=== PATIENT | female | born 1960 | race Caucasian/White ===

== ENCOUNTER 2016-11-16 12:49 | Emergency (ER) | payer BC ==
[~2016-11-16] VITALS: Ht 160 cm; Wt 81.6 kg
[~2016-11-16 12:49] MED LIST: ALBUTEROL0.09 MG/A2 IH; AMARYL1 MG PO; ATIVAN0.5 MG PO; BLADDER PILL; CLARITIN10 MG PO; DARVOCET N 1001 TAB PO; DAYPRO600 M1 PO; DICLOFENAC SOD75 MG PO; DITROPAN XL15 MG PO; FLEXERIL10 MG PO; GLUCOPHAGE500 MG PO; LEVAQUIN750 M1 PO; LIDEX 0.05% CRE15 GM T; MEDROL DOSEPAK4 MG PO; NEURONTIN300 MG PO; PERMETHRIN60 GM TP; POTASSIUM CHLO20 ME3 PO; PREDNICOT20 MG PO; PROAIR HFA8.5 GM IH; SEPTRA DS 800 M1 TAB PO; SINGULAIR5 MG PO; TESSALON PERLE100 M1 PO; TORADOL10 MG PO; VICODIN 5-3001 EACH PO; ZITHROMAX Z PA250 MG PO; ZYRTEC10 M1 PO; [UNRECOGNIZED DRUG - OTHER] PO
[2016-11-16 12:58] VITALS: BP 143/86
[2016-11-16] MEDS ORDERED: LEVAQUIN750 M1 PO (13:51)
[2016-11-16] MEDS ORDERED: ROBITUSSIN AC 110 ML PO (13:51)
[2016-11-16] MEDS ORDERED: CLARITIN10 MG PO (13:51)
[2016-11-16] MEDS ORDERED: PREDNISONE10 MG PO (13:51)
== END 2016-11-16 13:57 | disposition home or self-care (01) ==
LOC: ED 12:49
DX: J18.1 Lobar pneumonia, unspecified organism (principal); R03.0 Elevated blood-pressure reading, without diagnosis of hypertension; Z88.8 Allergy status to other drugs, medicaments and biological substances

== ENCOUNTER 2016-12-19 09:55 | Emergency (ER) | payer BC ==
[~2016-12-19 09:55] MED LIST changes: +PREDNISONE10 MG PO; +ROBITUSSIN AC 110 ML PO
[2016-12-19 09:58] VITALS: BP 102/76
[2016-12-19] MEDS ORDERED: ASPIRIN CHILDRE81 MG PO (10:03)
== END 2016-12-19 10:34 | disposition home or self-care (01) ==
LOC: ED 09:55
DX: R20.8 Other disturbances of skin sensation (principal); Z98.890 Other specified postprocedural states; Z98.51 Tubal ligation status; Z79.82 Long term (current) use of aspirin; Z79.899 Other long term (current) drug therapy; Z88.8 Allergy status to other drugs, medicaments and biological substances; Z86.718 Personal history of other venous thrombosis and embolism

== ENCOUNTER 2017-04-25 11:36 | Emergency (ER) | payer BC ==
[~2017-04-25] VITALS: Ht 160 cm; Wt 79.4 kg
[~2017-04-25 11:36] MED LIST changes: +ASPIRIN CHILDRE81 MG PO
[2017-04-25 11:38] VITALS: BP 97/76
[2017-04-25 12:05] LABS: BASO % 0.3 % (0.0-1.0); EOS # 0.1 10*3/uL (0.0-0.4); EOS % 1.9 % (1.0-4.0); HEMATOCRIT 38.9 % (37.0-47.0); HEMOGLOBIN 12.9 g/dl (12.0-16.0); LYMPH # 2.3 10*3/uL (1.3-4.4); LYMPH % 31.4 % (27.0-41.0); MEAN CELL VOLUME 95.1 fl (81.0-99.0); MEAN CORPUSCULAR HGB 31.5 pg (27.0-31.0); MEAN CORPUSCULAR HGB CONC 33.2 g/dl (33.0-37.0); MEAN PLATELET VOLUME 9.4 fl (9.6-12.3); MONO # 0.7 10*3/uL (0.1-1.0); MONO % 9.1 % (3.0-9.0); NEUT # 4.1 10*3/uL (2.3-7.9); NEUT % 56.7 % (47.0-73.0); PLATELET COUNT AUTOMATED 197 10*3/uL (130-400); RED BLOOD COUNT 4.09 10*6/uL (4.10-5.10); RED CELL DISTRI WIDTH 12.6 % (0-14.5); WHITE BLOOD COUNT 7.2 10*3/uL (4.8-10.8)
[2017-04-25 12:20] LABS: ALBUMIN 3.5 gm/dl (3.1-4.5); ALKALINE PHOSPHATASE 144 U/L (45-117); BUN 15 mg/dl (7-24); CHLORIDE 109 mmol/L (98-107); CREATININE 0.68 mg/dL (0.55-1.02); POTASSIUM 3.9 mmol/L (3.5-5.1); SGOT/AST 23 IU/L (3-35); SGPT/ALT 50 U/L (12-78); SODIUM 143 mmol/L (136-145); TOTAL PROTEIN 7.6 gm/dL (6.4-8.2)
[2017-04-25] MEDS ORDERED: CLARITIN10 MG PO (12:39)
[2017-04-25] MEDS ORDERED: ROBITUSSIN DM 105 ML PO (12:39)
[2017-04-25] MEDS ORDERED: FLONASE ALLERG9.9 ML NAS (12:39)
== END 2017-04-25 13:31 | disposition home or self-care (01) ==
LOC: ED 11:36
PROVIDERS: Nurse Practitioner Family
DX: B34.9 Viral infection, unspecified (principal); Z88.8 Allergy status to other drugs, medicaments and biological substances; Z79.82 Long term (current) use of aspirin; Z79.899 Other long term (current) drug therapy

== ENCOUNTER 2017-06-15 13:12 | Emergency (ER) | payer BC ==
[~2017-06-15] VITALS: Ht 160 cm; Wt 64.9 kg
[~2017-06-15 13:12] MED LIST changes: +FLONASE ALLERG9.9 ML NAS; +ROBITUSSIN DM 105 ML PO
[2017-06-15 13:24] VITALS: BP 110/60
== END 2017-06-15 14:20 | disposition home or self-care (01) ==
LOC: ED 13:12
DX: S20.121A Blister (nonthermal) of breast, right breast, initial encounter (principal); Z88.8 Allergy status to other drugs, medicaments and biological substances; Z79.82 Long term (current) use of aspirin; Z79.899 Other long term (current) drug therapy; X58.XXXA Exposure to other specified factors, initial encounter; Y93.89 Activity, other specified; Y92.89 Other specified places as the place of occurrence of the external cause; Y99.8 Other external cause status

== ENCOUNTER → 2017-06-19 | Outpatient (CLI) | payer BC ==
[2017-06-19 09:43] LABS: BASO % 0.3 % (0.0-1.0); EOS # 0.2 10*3/uL (0.0-0.4); EOS % 2.9 % (1.0-4.0); HEMATOCRIT 39.2 % (37.0-47.0); HEMOGLOBIN 12.9 g/dl (12.0-16.0); LYMPH % 26.5 % (27.0-41.0); MEAN CELL VOLUME 95.1 fl (81.0-99.0); MEAN CORPUSCULAR HGB 31.3 pg (27.0-31.0); MEAN CORPUSCULAR HGB CONC 32.9 g/dl (33.0-37.0); MEAN PLATELET VOLUME 9.6 fl (9.6-12.3); MONO # 0.6 10*3/uL (0.1-1.0); MONO % 7.6 % (3.0-9.0); NEUT # 4.8 10*3/uL (2.3-7.9); NEUT % 62.3 % (47.0-73.0); PLATELET COUNT AUTOMATED 218 10*3/uL (130-400); RED BLOOD COUNT 4.12 10*6/uL (4.10-5.10); RED CELL DISTRI WIDTH 12.1 % (0-14.5); WHITE BLOOD COUNT 7.7 10*3/uL (4.8-10.8)
[2017-06-19 09:51] LABS: ALBUMIN 3.5 gm/dl (3.1-4.5); ALKALINE PHOSPHATASE 132 U/L (45-117); BILIRUBIN, DIRECT < 0.1 mg/dL (0.0-0.2); BUN 19 mg/dl (7-24); CHLORIDE 107 mmol/L (98-107); CHOLESTEROL 264 mg/dL (<200); CREATININE 0.69 mg/dL (0.55-1.02); HDL CHOLESTEROL 95 mg/dl (40-60); LDL CHOLESTEROL 153 mg/dL (9-159); POTASSIUM 4.3 mmol/L (3.5-5.1); SGOT/AST 23 IU/L (3-35); SGPT/ALT 46 U/L (12-78); SODIUM 141 mmol/L (136-145); THYROXINE (T4) TOTAL 8.1 ug/dl (4.8-13.9); TOTAL PROTEIN 7.5 gm/dL (6.4-8.2); TRIGLYCERIDES 80 mg/dl (<150); VLDL CHOLESTEROL 16 mg/dL (6-40)
== END | disposition home or self-care (01) ==
LOC: LAB 08:53
PROVIDERS: Family Medicine
DX: E11.9 Type 2 diabetes mellitus without complications (principal); K21.9 Gastro-esophageal reflux disease without esophagitis; G40.909 Epilepsy, unspecified, not intractable, without status epilepticus

== ENCOUNTER 2017-07-15 14:36 | Emergency (ER) | payer BC ==
[~2017-07-15] VITALS: Wt 79.4 kg
[2017-07-15 14:53] VITALS: BP 111/58
[2017-07-15] MEDS ORDERED: AMOXICILLIN500 M2 PO (16:47)
[2017-07-15] MEDS ORDERED: CYCLOBENZAPRINE10 MG PO (16:47)
[2017-07-15] MEDS ORDERED: MEDROL DOSEPAK4 MG PO (16:47)
[2017-07-15] MEDS ORDERED: NAPROSYN500 MG PO (16:47)
== END 2017-07-15 17:11 | disposition home or self-care (01) ==
LOC: ED 14:36
DX: J01.90 Acute sinusitis, unspecified (principal); M54.31 Sciatica, right side; Z91.040 Latex allergy status; Z88.8 Allergy status to other drugs, medicaments and biological substances; Z79.82 Long term (current) use of aspirin; Z79.899 Other long term (current) drug therapy

== ENCOUNTER 2017-09-09 16:40 | Emergency (ER) | payer BC ==
[~2017-09-09] VITALS: Wt 77.1 kg
[~2017-09-09 16:40] MED LIST changes: +AMOXICILLIN500 M2 PO; +CYCLOBENZAPRINE10 MG PO; +NAPROSYN500 MG PO
[2017-09-09 17:17] LABS: BASO % 0.4 % (0.0-1.0); EOS # 0.1 10*3/uL (0.0-0.4); EOS % 0.9 % (1.0-4.0); HEMATOCRIT 38.8 % (37.0-47.0); HEMOGLOBIN 12.9 g/dl (12.0-16.0); LYMPH # 2.3 10*3/uL (1.3-4.4); LYMPH % 22.3 % (27.0-41.0); MEAN CELL VOLUME 96.3 fl (81.0-99.0); MEAN CORPUSCULAR HGB CONC 33.2 g/dl (33.0-37.0); MEAN PLATELET VOLUME 9.8 fl (9.6-12.3); MONO # 0.9 10*3/uL (0.1-1.0); MONO % 8.3 % (3.0-9.0); NEUT # 6.9 10*3/uL (2.3-7.9); NEUT % 67.8 % (47.0-73.0); PLATELET COUNT AUTOMATED 198 10*3/uL (130-400); RED BLOOD COUNT 4.03 10*6/uL (4.10-5.10); RED CELL DISTRI WIDTH 12.6 % (0-14.5); WHITE BLOOD COUNT 10.2 10*3/uL (4.8-10.8)
[2017-09-09 17:34] VITALS: BP 146/72
[2017-09-09 17:34] LABS: ACETAMINOPHEN (TYLENOL) < 2.0 ug/ml (10-30); ALBUMIN 3.9 gm/dl (3.1-4.5); ALKALINE PHOSPHATASE 119 U/L (45-117); BUN 9 mg/dl (7-24); CHLORIDE 105 mmol/L (98-107); CREATININE 0.73 mg/dL (0.55-1.02); ETHYL ALCOHOL < 3.0 mg/dl (<3); LIPASE 143 U/L (73-393); POTASSIUM 3.2 mmol/L (3.5-5.1); SGOT/AST 19 IU/L (3-35); SGPT/ALT 30 U/L (12-78); SODIUM 141 mmol/L (136-145); TOTAL PROTEIN 7.6 gm/dL (6.4-8.2); TROPONIN I < 0.015 ng/ml (<0.045)
[2017-09-09 17:39] LABS: BILIRUBIN NEGATIVE (NEGATIVE); BLOOD TRACE-INTACT (NEGATIVE); CLARITY CLEAR (CLEAR); COLOR YELLOW (YELLOW); GLUCOSE NEGATIVE (NEGATIVE); KETONE NEGATIVE (NEGATIVE); LEUKO ESTERASE NEGATIVE (NEGATIVE); NITRITE NEGATIVE (NEGATIVE); UROBILINOGEN 0.2 E.U./dl (0.2-1.0)
[2017-09-09 17:52] LABS: URINE AMPHETAMINES < 1000 (1000ng/ml); URINE BARBITURATES < 200 (200ng/ml); URINE BENZODIAZEPINES < 200 (200ng/ml); URINE CANNABINOIDS (THC) < 50 (50ng/ml); URINE COCAINE < 300 (300ng/ml); URINE METHADONE < 300 (300ng/ml); URINE OPIATES < 300 (300ng/ml)
[2017-09-09 17:53] LABS: BACTERIA TRACE
[2017-09-09 17:55] LABS: URINE PHENCYCLIDINE < 25 (25ng/ml)
== END 2017-09-09 18:49 | disposition home or self-care (01) ==
LOC: ED 16:40
PROVIDERS: Emergency Medicine
DX: F41.9 Anxiety disorder, unspecified (principal); Z91.040 Latex allergy status; Z88.8 Allergy status to other drugs, medicaments and biological substances; Z79.82 Long term (current) use of aspirin; Z79.899 Other long term (current) drug therapy

== ENCOUNTER 2017-12-24 12:45 | Emergency (ER) | payer OTHER, MEDICAID ==
[~2017-12-24] VITALS: Ht 160 cm; Wt 77.1 kg
[2017-12-24 15:00] VITALS: BP 124/78
[2017-12-24] MEDS ORDERED: NAPROSYN500 MG PO (15:16)
== END 2017-12-24 15:30 | disposition home or self-care (01) ==
LOC: ED 12:45
DX: S80.01XA Contusion of right knee, initial encounter (principal); M17.11 Unilateral primary osteoarthritis, right knee; Z98.890 Other specified postprocedural states; Z98.51 Tubal ligation status; Z79.82 Long term (current) use of aspirin; Z79.899 Other long term (current) drug therapy; Z91.040 Latex allergy status; Z88.6 Allergy status to analgesic agent; W10.8XXA Fall (on) (from) other stairs and steps, initial encounter; Y93.89 Activity, other specified; Y92.099 Unspecified place in other non-institutional residence as the place of occurrence of the external cause; Y99.9 Unspecified external cause status

== ENCOUNTER → 2018-06-14 | Outpatient (CLI) | payer OTHER, MEDICAID ==
[2018-06-14 15:57] LABS: BASO % 0.5 % (0.0-1.0); EOS # 0.3 10*3/uL (0.0-0.4); EOS % 3.3 % (1.0-4.0); HEMATOCRIT 39.3 % (37.0-47.0); HEMOGLOBIN 12.9 g/dl (12.0-16.0); LYMPH # 1.9 10*3/uL (1.3-4.4); LYMPH % 23.8 % (27.0-41.0); MEAN CELL VOLUME 94.2 fl (81.0-99.0); MEAN CORPUSCULAR HGB 30.9 pg (27.0-31.0); MEAN CORPUSCULAR HGB CONC 32.8 g/dl (33.0-37.0); MEAN PLATELET VOLUME 9.6 fl (9.6-12.3); MONO # 0.6 10*3/uL (0.1-1.0); MONO % 7.6 % (3.0-9.0); NEUT # 5.3 10*3/uL (2.3-7.9); NEUT % 64.4 % (47.0-73.0); PLATELET COUNT AUTOMATED 214 10*3/uL (130-400); RED BLOOD COUNT 4.17 10*6/uL (4.10-5.10); WHITE BLOOD COUNT 8.2 10*3/uL (4.8-10.8)
[2018-06-14 16:12] LABS: ALBUMIN 3.4 gm/dl (3.1-4.5); ALKALINE PHOSPHATASE 135 U/L (45-117); BILIRUBIN, DIRECT < 0.1 mg/dL (0.0-0.2); BUN 13 mg/dl (7-24); CHLORIDE 103 mmol/L (98-107); CHOLESTEROL 247 mg/dL (<200); CREATININE 0.83 mg/dL (0.55-1.02); POTASSIUM 3.8 mmol/L (3.5-5.1); SGOT/AST 18 IU/L (3-35); SGPT/ALT 26 U/L (12-78); SODIUM 138 mmol/L (136-145); TOTAL PROTEIN 7.2 gm/dL (6.4-8.2); TRIGLYCERIDES 147 mg/dl (<150); VLDL CHOLESTEROL 29 mg/dL (6-40)
[2018-06-14 16:20] LABS: HDL CHOLESTEROL 89 mg/dl (40-60); LDL CHOLESTEROL 129 mg/dL (9-159); THYROID STIM HORMONE (HS) 0.926 uIU/ml (0.358-4.75); THYROXINE (T4) TOTAL 7.1 ug/dl (4.8-13.9)
== END | disposition home or self-care (01) ==
LOC: LAB 15:05
PROVIDERS: Family Medicine
DX: G40.909 Epilepsy, unspecified, not intractable, without status epilepticus (principal); E11.9 Type 2 diabetes mellitus without complications

== ENCOUNTER → 2020-06-26 | Outpatient (CLI) | payer MEDICARE, OTHER ==
[2020-06-26 12:28] LABS: BASO % 0.3 % (0.0-1.0); EOS # 0.1 10*3/uL (0.0-0.4); EOS % 0.7 % (1.0-4.0); LYMPH # 3.3 10*3/uL (1.3-4.4); LYMPH % 28.1 % (27.0-41.0); MEAN CELL VOLUME 95.9 fl (81.0-99.0); MEAN CORPUSCULAR HGB 30.6 pg (27.0-31.0); MEAN CORPUSCULAR HGB CONC 31.9 g/dl (33.0-37.0); MEAN PLATELET VOLUME 9.7 fl (9.6-12.3); MONO # 0.8 10*3/uL (0.1-1.0); MONO % 6.8 % (3.0-9.0); NEUT # 7.4 10*3/uL (2.3-7.9); NEUT % 63.6 % (47.0-73.0); PLATELET COUNT AUTOMATED 220 10*3/uL (130-400); RED BLOOD COUNT 4.38 10*6/uL (4.10-5.10); RED CELL DISTRI WIDTH 12.6 % (0-14.5); WHITE BLOOD COUNT 11.7 10*3/uL (4.8-10.8)
[2020-06-26 12:44] LABS: ALBUMIN 3.6 gm/dl (3.1-4.5); ALKALINE PHOSPHATASE 164 U/L (45-117); BILIRUBIN, DIRECT < 0.1 mg/dL (0.0-0.2); BUN 11 mg/dl (7-24); CHLORIDE 109 mmol/L (98-107); CREATININE 0.61 mg/dL (0.55-1.02); POTASSIUM 3.5 mmol/L (3.5-5.1); SGOT/AST 20 IU/L (3-35); SGPT/ALT 41 U/L (12-78); SODIUM 141 mmol/L (136-145)
== END | disposition home or self-care (01) ==
LOC: LAB 11:53
PROVIDERS: ATTEND Family Medicine
DX: E55.9 Vitamin D deficiency, unspecified (principal); R94.5 Abnormal results of liver function studies; R73.9 Hyperglycemia, unspecified

== ENCOUNTER → 2021-03-27 | Outpatient (CLI) | payer MEDICARE, OTHER ==
[2021-03-27 13:44] LABS: BASO % 0.4 % (0.0-1.0); EOS # 0.3 10*3/uL (0.0-0.4); EOS % 2.8 % (1.0-4.0); HEMATOCRIT 43.2 % (37.0-47.0); LYMPH % 21.9 % (27.0-41.0); MEAN CELL VOLUME 98.4 fl (81.0-99.0); MEAN CORPUSCULAR HGB CONC 31.5 g/dl (33.0-37.0); MEAN PLATELET VOLUME 9.7 fl (9.6-12.3); MONO # 0.7 10*3/uL (0.1-1.0); MONO % 7.9 % (3.0-9.0); NEUT # 6.1 10*3/uL (2.3-7.9); NEUT % 66.7 % (47.0-73.0); PLATELET COUNT AUTOMATED 193 10*3/uL (130-400); RED BLOOD COUNT 4.39 10*6/uL (4.10-5.10); RED CELL DISTRI WIDTH 12.5 % (0-14.5); WHITE BLOOD COUNT 9.2 10*3/uL (4.8-10.8)
[2021-03-27 14:03] LABS: ALBUMIN 3.6 gm/dl (3.1-4.5); ALKALINE PHOSPHATASE 191 U/L (45-117); BUN 13 mg/dl (7-24); CHLORIDE 109 mmol/L (98-107); CHOLESTEROL 205 mg/dL (<200); CREATININE 0.68 mg/dL (0.55-1.02); LDL CHOLESTEROL 87 mg/dL (9-159); POTASSIUM 3.8 mmol/L (3.5-5.1); SGOT/AST 28 IU/L (3-35); SGPT/ALT 55 U/L (12-78); SODIUM 143 mmol/L (136-145); THYROXINE (T4) TOTAL 7.1 ug/dl (4.8-13.9); TOTAL PROTEIN 7.9 gm/dL (6.4-8.2); TRIGLYCERIDES 63 mg/dl (<150)
== END | disposition home or self-care (01) ==
LOC: LAB 13:14
PROVIDERS: ATTEND Family Medicine
DX: E11.9 Type 2 diabetes mellitus without complications (principal); E03.9 Hypothyroidism, unspecified; E55.9 Vitamin D deficiency, unspecified; F32.9 Major depressive disorder, single episode, unspecified; R56.9 Unspecified convulsions

== ENCOUNTER → 2022-05-13 | Outpatient (CLI) | payer MEDICARE, OTHER ==
[2022-05-13 12:03] LABS: BASO # 0.1 10*3/uL (0.0-0.1); EOS # 0.2 10*3/uL (0.0-0.4); EOS % 2.8 % (1.0-4.0); HEMATOCRIT 40.6 % (37.0-47.0); LYMPH # 2.1 10*3/uL (1.3-4.4); LYMPH % 29.4 % (27.0-41.0); MEAN CELL VOLUME 96.4 fl (81.0-99.0); MEAN CORPUSCULAR HGB 31.6 pg (27.0-31.0); MEAN CORPUSCULAR HGB CONC 32.8 g/dl (33.0-37.0); MONO # 0.6 10*3/uL (0.1-1.0); MONO % 7.8 % (3.0-9.0); NEUT # 4.2 10*3/uL (2.3-7.9); NEUT % 58.7 % (47.0-73.0); PLATELET COUNT AUTOMATED 208 10*3/uL (130-400); RED BLOOD COUNT 4.21 10*6/uL (4.10-5.10); RED CELL DISTRI WIDTH 12.6 % (0-14.5); WHITE BLOOD COUNT 7.2 10*3/uL (4.8-10.8)
[2022-05-13 12:20] LABS: ALKALINE PHOSPHATASE 152 U/L (45-117); BUN 19 mg/dl (7-24); CHLORIDE 111 mmol/L (98-107); CREATININE 0.72 mg/dL (0.55-1.02); POTASSIUM 3.9 mmol/L (3.5-5.1); SGOT/AST 26 IU/L (3-35); SGPT/ALT 44 U/L (12-78); SODIUM 141 mmol/L (136-145); THYROXINE (T4) TOTAL 7.2 ug/dl (4.8-13.9); TOTAL PROTEIN 7.7 gm/dL (6.4-8.2)
== END | disposition home or self-care (01) ==
LOC: LAB 11:42
PROVIDERS: ATTEND Family Medicine
DX: E11.9 Type 2 diabetes mellitus without complications (principal); K21.9 Gastro-esophageal reflux disease without esophagitis; Z51.81 Encounter for therapeutic drug level monitoring; E55.9 Vitamin D deficiency, unspecified

== ENCOUNTER → 2022-10-21 | Outpatient (CLI) | payer MEDICARE, OTHER ==
[2022-10-21 12:03] LABS: BASO # 0.1 10*3/uL (0.0-0.1); BASO % 0.7 % (0.0-1.0); EOS # 0.4 10*3/uL (0.0-0.4); EOS % 5.1 % (1.0-4.0); HEMATOCRIT 40.5 % (37.0-47.0); LYMPH # 1.8 10*3/uL (1.3-4.4); MEAN CELL VOLUME 96.7 fl (81.0-99.0); MEAN CORPUSCULAR HGB CONC 32.1 g/dl (33.0-37.0); MEAN PLATELET VOLUME 9.3 fl (9.6-12.3); MONO # 0.6 10*3/uL (0.1-1.0); MONO % 7.8 % (3.0-9.0); NEUT # 4.8 10*3/uL (2.3-7.9); NEUT % 62.1 % (47.0-73.0); PLATELET COUNT AUTOMATED 202 10*3/uL (130-400); RED BLOOD COUNT 4.19 10*6/uL (4.10-5.10); RED CELL DISTRI WIDTH 12.2 % (0-14.5); WHITE BLOOD COUNT 7.7 10*3/uL (4.8-10.8)
[2022-10-21 12:36] LABS: ALKALINE PHOSPHATASE 143 U/L (46-116); BUN 14 mg/dl (9-23); CHLORIDE 109 mmol/L (98-107); CHOLESTEROL 220 mg/dL (<200); LDL CHOLESTEROL 117 mg/dL (9-159); POTASSIUM 3.9 mmol/L (3.4-5.1); SGPT/ALT 23 U/L (10-49); TOTAL PROTEIN 7.2 gm/dL (6.0-8.0); TRIGLYCERIDES 93 mg/dl (<150)
== END | disposition home or self-care (01) ==
LOC: LAB 11:40
PROVIDERS: ATTEND Family Medicine
DX: E11.9 Type 2 diabetes mellitus without complications (principal)

== ENCOUNTER → 2024-10-10 | Outpatient (CLI) | payer OTHER, MEDICAID ==
[2024-10-10 09:52] LABS: BASO % 0.5 % (0.0-1.0); EOS # 0.2 10*3/uL (0.0-0.4); EOS % 2.5 % (1.0-4.0); HEMATOCRIT 42.1 % (37.0-47.0); MEAN CELL VOLUME 97.9 fl (81.0-99.0); MEAN CORPUSCULAR HGB 31.4 pg (27.0-31.0); MEAN CORPUSCULAR HGB CONC 32.1 g/dl (33.0-37.0); MEAN PLATELET VOLUME 9.4 fl (9.6-12.3); MONO # 0.7 10*3/uL (0.1-1.0); MONO % 8.4 % (3.0-9.0); NEUT # 5.1 10*3/uL (2.3-7.9); NEUT % 65.9 % (47.0-73.0); PLATELET COUNT AUTOMATED 194 10*3/uL (130-400); RED CELL DISTRI WIDTH 12.1 % (0-14.5); WHITE BLOOD COUNT 7.7 10*3/uL (4.8-10.8)
[2024-10-10 10:28] LABS: ALKALINE PHOSPHATASE 158 U/L (46-116); BUN 20 mg/dl (9-23); CHLORIDE 107 mmol/L (98-107); POTASSIUM 4.1 mmol/L (3.4-5.1); SGPT/ALT 21 U/L (5-49); THYROXINE (T4) TOTAL 3.8 ug/dl (4.5-10.9); TOTAL PROTEIN 7.4 gm/dL (6.0-8.0)
[2024-10-10 10:43] LABS: VITAMIN D, 25-HYDROXY 30.6 ng/mL (30-100)
== END | disposition home or self-care (01) ==
LOC: LAB 09:29
PROVIDERS: ATTEND Family Medicine
DX: E55.9 Vitamin D deficiency, unspecified (principal); E11.9 Type 2 diabetes mellitus without complications; K76.0 Fatty (change of) liver, not elsewhere classified

== ENCOUNTER → 2024-11-08 | Outpatient (CLI) | payer OTHER, MEDICAID ==
[2024-11-08 13:14] LABS: BASO % 0.5 % (0.0-1.0); EOS # 0.2 10*3/uL (0.0-0.4); EOS % 1.9 % (1.0-4.0); HEMATOCRIT 43.3 % (37.0-47.0); MEAN CELL VOLUME 97.1 fl (81.0-99.0); MEAN CORPUSCULAR HGB 30.9 pg (27.0-31.0); MEAN CORPUSCULAR HGB CONC 31.9 g/dl (33.0-37.0); MEAN PLATELET VOLUME 9.3 fl (9.6-12.3); MONO # 0.7 10*3/uL (0.1-1.0); MONO % 8.2 % (3.0-9.0); NEUT # 5.3 10*3/uL (2.3-7.9); NEUT % 65.4 % (47.0-73.0); PLATELET COUNT AUTOMATED 200 10*3/uL (130-400); RED BLOOD COUNT 4.46 10*6/uL (4.10-5.10); RED CELL DISTRI WIDTH 12.4 % (0-14.5); WHITE BLOOD COUNT 8.1 10*3/uL (4.8-10.8)
== END | disposition home or self-care (01) ==
LOC: LAB 13:00
PROVIDERS: ATTEND Family Medicine
DX: R07.9 Chest pain, unspecified (principal)

== ENCOUNTER → 2024-11-09 | Outpatient (CLI) | payer OTHER, MEDICAID | END | disposition home or self-care (01) | LOC: RAD 08:41 → LAB 08:41 | PROVIDERS: ATTEND Family Medicine | DX: K59.00 Constipation, unspecified (principal); R10.9 Unspecified abdominal pain; M47.817 Spondylosis without myelopathy or radiculopathy, lumbosacral region ==